=== PATIENT | female | born 2000 | race Caucasian/White ===

== ENCOUNTER 2022-03-13 00:37 | Emergency (ER) | payer SELFPAY | END 2022-03-13 02:45 | disposition home or self-care (01) | LOC: JD.ED 00:37 | DX: S60.221A Contusion of right hand, initial encounter (principal); F17.210 Nicotine dependence, cigarettes, uncomplicated; Z86.16 Personal history of COVID-19; W01.0XXA Fall on same level from slipping, tripping and stumbling without subsequent striking against object, initial encounter | CPT/HCPCS: 73110-26-RT; 73110-RT; 99283 ==